=== PATIENT | male | born 1965 | race Caucasian/White ===

== ENCOUNTER 2024-10-12 05:28 | Day surgery (SDC) | payer MEDICAID ==
[2024-10-12] VITALS (10 sets, daily range): BP systolic 132–151; BP diastolic 69–105; PULSE 68–86; RESP 9–16; TEMP 97.5; O2SAT 93–97
[~2024-10-12] VITALS: Ht 188 cm; Wt 102.8 kg
[~2024-10-12 05:28] MED LIST: ANTACID PO; OXYC1TAB17 PO; QUET100T34 PO; TADA5TAB2 PO; TEMA30CA PO
[2024-10-12] MEDS: ringers solution, lacted 1,000 ML IV SCH (06:34)
[2024-10-12] MEDS: famotidine 20mg tablet PO ONE (06:34)
[2024-10-12 06:36] LABS: BASOPHILS % (AUTO) 0.5 % (0-1); EOSINOPHILS # (AUTO) 0.4 X10'3 (0-0.9); EOSINOPHILS % (AUTO) 6.8 % (0-6); LYMPHOCYTES % (AUTO) 36.1 % (21-51); MEAN CORPUSCULAR HEMOGLOBIN 27.6 PG (27.0-31.0); MEAN CORPUSCULAR HGB CONC 32.6 g/dL (33.0-36.5); MEAN CORPUSCULAR VOLUME 84.7 FL (78-98); MEAN PLATELET VOLUME 7.3 FL (7.4-10.4); MONOCYTES # (AUTO) 0.3 X10'3 (0-0.9); MONOCYTES % (AUTO) 5.9 % (2-12); NEUTROPHILS # (AUTO) 2.8 X10'3 (1.8-7.7); NEUTROPHILS % (AUTO) 50.7 % (42-75); PRE OP HEMATOCRIT 43.5 % (42.0-52.0); PRE OP HEMOGLOBIN 14.2 g/dL (14.0-17.9); PRE OP PLATELET COUNT 301 X10'3 (140-440); PRE OP WHITE BLOOD COUNT 5.5 10'3 (4.8-10.8); RED BLOOD COUNT 5.14 X10'6 (4.70-6.10); RED CELL DISTRIBUTION WIDTH 13.1 % (11.5-14.5)
[2024-10-12] MEDS ORDERED: triamcinolone acetonide 40mg/ml inj ONE (06:46)
[2024-10-12] MEDS ORDERED: BUPIVAcaine 2.5mg/ml inj 50ml vial (contains preservative) ONE (06:46)
[2024-10-12 06:52] LABS: ALBUMIN 3.9 G/DL (3.4-5.0); ALBUMIN/GLOBULIN RATIO 1.1 (1.1-1.5); ALKALINE PHOSPHATASE 54 IU/L (46-116); BLOOD UREA NITROGEN 11 MG/DL (7-18); BUN/CREATININE RATIO 12.2 (10.0-20.0); CALCIUM 8.9 MG/DL (8.5-10.1); CHLORIDE 105 MMOL/L (99-107); PRE OP ALT 30 U/L (30-65); PRE OP ANION GAP 9 (8-16); PRE OP AST 18 U/L (10-37); PRE OP BILIRUB, TOTAL 0.3 MG/DL (0.0-1.0); PRE OP GLUCOSE 114 MG/DL (70-104); PRE OP POTASSIUM 3.7 MMOL/L (3.4-5.1); PRE OP SODIUM 142 MMOL/L (135-145); TOTAL CARBON DIOXIDE 27.9 MMOL/L (24-32); TOTAL PROTEIN 7.3 G/DL (6.4-8.2); eCRCL 103 ML/MIN; eGFR 86 ML/MIN
[2024-10-12] MEDS ORDERED: fentaNYL/PF 50MCG/1 ML 2ML syringe ONE (07:16)
[2024-10-12] MEDS ORDERED: midazolam 1 mg/ML 2ml injection ONE (07:16)
[2024-10-12] MEDS ORDERED: sevoflurane 250ml liquid IH ONE (07:17)
[2024-10-12] MEDS ORDERED: cloNIDine hcl/PF 100mcg/ml inj ONE (07:26)
[2024-10-12] MEDS ORDERED: meperidine/PF 25mg/ml syringe IV PRN ×3 (07:30)
[2024-10-12] MEDS ORDERED: enalaprilat 1.25mg/ml 2ml vial IV PRN (07:30)
[2024-10-12] MEDS ORDERED: morphine 4 MG/ML inj SYRINge IV PRN (07:30)
[2024-10-12] MEDS ORDERED: ondansetron/PF 4mg/2ml inj IV PRN (07:30)
[2024-10-12] MEDS ORDERED: morphine 2 MG/ML inj. syringe IV PRN (07:30)
[2024-10-12] MEDS ORDERED: ringers solution, lacted 1,000 ML IV SCH (07:30)
[2024-10-12] MEDS ORDERED: proCHLORperazine 10 MG/2 ml inj IV PRN (07:30)
[2024-10-12] MEDS ORDERED: labetalol 20mg/4ml (5mg/ml) syringe IV PRN (07:30)
[2024-10-12] MEDS ORDERED: dexamethasone sod phosphate 4mg/ml inj. ONE (07:53)
[2024-10-12] MEDS ORDERED: propofol inj 20 ML IV ONE (07:53)
[2024-10-12] MEDS ORDERED: LIDOcaine 2% (20mg/ml) 5ml vial ONE (07:53)
[2024-10-12] MEDS: triamcinolone acetonide 40mg/ml inj IJ ONE (07:59)
[2024-10-12] MEDS: BUPIVAcaine 0.25% w/Epi /PF 30ml vial IJ ONE (07:59)
[2024-10-12] MEDS: HYDROcodone/acetaminophen 10/325mg tab PO PRN (08:44)
== END 2024-10-12 09:47 | disposition home or self-care (01) ==
LOC: PAS 05:28
PROVIDERS: ATTEND Orthopaedic Surgery
DX: T84.82XA Fibrosis due to internal orthopedic prosthetic devices, implants and grafts, initial encounter (principal); K21.9 Gastro-esophageal reflux disease without esophagitis; Y83.8 Other surgical procedures as the cause of abnormal reaction of the patient, or of later complication, without mention of misadventure at the time of the procedure; Z79.899 Other long term (current) drug therapy; G89.18 Other acute postprocedural pain; Z88.8 Allergy status to other drugs, medicaments and biological substances; Z98.890 Other specified postprocedural states; G89.29 Other chronic pain
CPT/HCPCS: 27570; 36415; 64447; 80053; 82948; 85025; 93005; J0735; J1100; J2003; J2250; J2704; J3010; J3301; J3490; J7120; Z7506; Z7512; A4215; A4618; S0020